=== PATIENT | female | born 1965 | race Caucasian/White ===

== ENCOUNTER 2017-08-31 22:49 | Emergency (ER) | payer OTHER, SELFPAY ==
[2017-08-31] MEDS ORDERED: Adacel (T-DAP) 0.5 ML VIAL ONE (23:01)
== END 2017-08-31 23:11 | disposition home or self-care (01) ==
LOC: SCSER 22:49
DX: S61.012A Laceration without foreign body of left thumb without damage to nail, initial encounter (principal); W26.0XXA Contact with knife, initial encounter
CPT/HCPCS: 12001; 90471; 90715

== ENCOUNTER 2018-07-17 22:35 | Emergency (ER) | payer OTHER ==
[2018-07-17] MEDS ORDERED: predniSONE 20 MG TAB ONE (23:00)
== END 2018-07-17 23:04 | disposition home or self-care (01) ==
LOC: SCSER 22:35
DX: T78.40XA Allergy, unspecified, initial encounter (principal)
CPT/HCPCS: 99283; J7506